=== PATIENT | female | born 1965 | race Caucasian/White ===

== ENCOUNTER 2016-12-05 22:06 | Emergency (ER) | payer OTHER ==
[~2016-12-05] VITALS: Wt 64.5 kg
[2016-12-05] MEDS ORDERED: SOD CHLORIDE 0.9% 1,000 ML IV STA (23:13)
[2016-12-05] MEDS ORDERED: ONDANSETRON 4 MG INJ IV STA (23:13)
[2016-12-05 23:36] LABS: ADD SCAN DIFF NO
[2016-12-05 23:39] LABS: BASOPHILS % 0.6 % (0.0-2.0); EOSINOPHILS # 0.2 10^3/ul (0.0-0.5); EOSINOPHILS % 3.5 % (0.0-7.0); HEMATOCRIT 43.1 % (37.0-47.0); LYMPHOCYTES # 1.9 10^3/ul (0.8-2.9); LYMPHOCYTES % 35.7 % (15.0-51.0); MEAN CORPUSCULAR HEMOGLOBIN 28.2 pg (29.0-33.0); MEAN CORPUSCULAR HGB CONC 34.8 g/dl (32.0-37.0); MEAN PLATELET VOLUME 9.7 fl (7.4-10.4); MONOCYTE # 0.4 10^3/ul (0.3-0.9); MONOCYTES % 7.5 % (0.0-11.0); NEUTROPHIL # 2.7 10^3/ul (1.6-7.5); NEUTROPHILS % 52.5 % (39.0-77.0); PLATELET COUNT 243 10^3/UL (140-415); RED BLOOD COUNT 5.32 10^6/ul (4.20-5.40); RED CELL DISTRIBUTION WIDTH 13.2 % (11.5-14.5); WHITE BLOOD COUNT 5.2 10^3/ul (4.8-10.8)
[2016-12-05] MEDS ORDERED: GLIP-95 PO (23:54)
--- NOTE | 2016-12-06 00:01 | RADRPT ---
PROCEDURE: CT brain without contrast CLINICAL INDICATION: Headaches. Concern for intracranial hemorrhage TECHNIQUE: A CT of the brain was performed utilizing axial sections from the skull base through th e vertex without contrast. Sagittal and coronal images were also reformatted. The exam CTDIvol = 44. 90 mGy and DLP = 720.23 mGy-cm. COMPARISON: None available FINDINGS: No acute intracranial hemorrhage is identified. There is no mass effect or midline shift. No extra -axial fluid collection is seen. The ventricles and sulci are within normal limits for size and con figuration. The density of the brain is within normal limits. Evans-white differentiation is preser devante. The osseous structures are unremarkable. The mastoid air cells and visualized paranasal sinuses are clear. RPTAT:HJJR IMPRESSION: Unremarkable noncontrast CT of the brain. No evidence of intracranial hemorrhage. Physician Rosamaria Date Time Electronically viewed and signed by Physician Rosamaria on 12/06/2016 00:01 /
[2016-12-06 00:03] LABS: ADD UMIC YES; URINE BILIRUBIN (Dip) NEGATIVE (NEGATIVE); URINE BLOOD (Dip) NEGATIVE (NEGATIVE); URINE COLOR LT. YELLOW (YELLOW); URINE GLUCOSE (Dip) >=1000 % (NEGATIVE); URINE KETONES (Dip) NEGATIVE (NEGATIVE); URINE LEUKOCYTE ESTERASE (Dip) NEGATIVE (NEGATIVE); URINE NITRITE (Dip) NEGATIVE (NEGATIVE); URINE TOTAL PROTEIN (Dip) 2+ (NEGATIVE); URINE UROBILINOGEN (Dip) 1.0 E.U./dL (0.1-1.0)
[2016-12-06 00:18] LABS: BACTERIA,URINE OCCASIONAL; SQUAMOUS EPITHELIAL CELL,UR FEW; URINE RBCS NONE SEEN /HPF (0)
[2016-12-06 00:26] LABS: TROPONIN-I < 0.012 ng/ml (0.00-0.12)
[2016-12-06 00:27] LABS: ALANINE AMINOTRANSFERASE 128 IU/L (13-69); ALBUMIN 3.9 g/dl (3.3-4.9); ALBUMIN/GLOBULIN RATIO 0.95; ALKALINE PHOSPHATASE 95 IU/L (42-121); ANION GAP 9 (8-16); ASPARTATE AMINO TRANSFERASE 75 IU/L (15-46); BILIRUBIN,INDIRECT 0.4 mg/dl (0-1.1); BILIRUBIN,TOTAL 0.4 mg/dl (0.2-1.3); BLOOD UREA NITROGEN 11 mg/dl (7-20); CALCIUM 9.2 mg/dl (8.4-10.2); CARBON DIOXIDE 30 mmol/L (21-31); CHLORIDE 100 mmol/L (97-110); CREATININE 0.53 mg/dl (0.44-1.00); GLUCOSE 303 mg/dl (70-220); POTASSIUM 3.4 mmol/L (3.5-5.1); SODIUM 136 mmol/L (135-144)
[2016-12-06] MEDS ORDERED: INSULIN LISPRO 100 UNIT/ML VIAL SC STA (00:31)
[2016-12-06] MEDS ORDERED: ONDA4TAB8 PO (00:54)
[2016-12-06] MEDS ORDERED: IBUP-1542 PO (00:54)
--- NOTE | 2016-12-06 01:02 | ERD ---
ER Documentation Chief Complaint Date/Time DATE: 12/06/16 TIME: 00:57 Chief Complaint NAUSEA/VOMITING X3/DIZZY/BODY PAIN SINCE 5AM HASN'T TAKEN BP MEDS HPI 51-year-old woman brought in by daughter for complaints of generalized dizziness , weakness, nausea and vomiting 3 episodes today. She has had body aches although she does denied chest pain and abdominal pain specifically. Patient denies dysuria, no fevers or chills, no complaints of neck pain or stiffness, although she has had headache. Patient has had no loss of consciousness, no weakness in her arms or legs, no slurred speech. ROS All systems reviewed and are negative except as per history of present illness. Medications Home Meds Active Scripts Ondansetron Hcl* (Zofran*) 4 Mg Tablet, 4 MG PO Q8H Y for NAUSEA AND/OR VOMITING , #15 TAB Prov:JADE HOLDEN MD 12/06/16 Ibuprofen* (Ibuprofen*) 600 Mg Tablet, 600 MG PO Q8 for PAIN AND/OR INFLAMMATION , #30 TAB Prov:JADE HOLDEN MD 12/06/16 Reported Medications Glipizide* (Glipizide*) 10 Mg Tablet, 10 MG PO AC BREAKFAST, TAB 12/05/16 Allergies Allergies: Coded Allergies: No Known Allergy (Unverified , 12/05/16) PMhx/Soc Diabetes mellitus, hypertension Medical and Surgical Hx: pt denies Surgical Hx Hx Miscellaneous Medical Probl: Yes (DM) Hx Alcohol Use: No Hx Substance Use: No Hx Tobacco Use: No Smoking Status: Never smoker FmHx Family History: No diabetes Physical Exam Vitals Vital Signs Date Time Temp Pulse Resp B/P Pulse Ox O2 Delivery O2 Flow Rate FiO2 12/06/16 01:04 97.7 72 20 146/82 100 Room Air 12/06/16 00:50 97.8 78 20 142/78 100 Room Air 12/05/16 22:50 97.8 61 20 185/82 100 Room Air 12/05/16 22:10 97.8 73 20 188/86 97 Physical Exam GENERAL: Well-developed, well-nourished, well-hydrated, in no apparent distress , looks nontoxic in appearance HEENT: Moist mucous membranes, pink conjunctiva, no cervical spine tenderness or step-off deformities, no goiter, no jaundice or icterus, extraocular movements intact without pain. No submandibular induration, and no pharyngeal erythema NEURO: Alert and oriented 3, cranial nerves II through XII intact bilaterally, pupils equal round reactive to light, no focal deficits or facial asymmetry, sensation intact distally Strength 5/5 in upper and lower extremities bilaterally CARDIAC: Bradycardic and regular no murmurs rubs or gallops LUNGS: Clear bilaterally no wheezing crackles or stridor ABDOMEN: Soft nontender, no guarding, no rigidity, no rebound, no psoas sign no obturator sign. Normoactive bowel sounds SKIN: Warm and dry to touch, no abrasions, contusions, or hematomas, no lacerations, no ecchymosis, no target lesions, and without ulcers EXTREMITIES: No clubbing cyanosis or edema, calves are bilaterally symmetrical, no Homans sign, no popliteal cord sign. Distal pulses equal and bilateral PSYCH: Normal affect without agitation or irritability Result Diagram: 12/05/16 2315 12/05/16 2315 Results 24 hrs Laboratory Tests Test 12/05/16 23:15 12/06/16 00:56 White Blood Count 5.210^3/ul Red Blood Count 5.3210^6/ul Hemoglobin 15.0g/dl Hematocrit 43.1% Mean Corpuscular Volume 81.0fl Mean Corpuscular Hemoglobin 28.2pg Mean Corpuscular Hemoglobin Concent 34.8g/dl Red Cell Distribution Width 13.2% Platelet Count 60571^3/UL Mean Platelet Volume 9.7fl Neutrophils % 52.5% Lymphocytes % 35.7% Monocytes % 7.5% Eosinophils % 3.5% Basophils % 0.6% Nucleated Red Blood Cells % 0.0/100WBC Neutrophils # 2.710^3/ul Lymphocytes # 1.910^3/ul Monocytes # 0.410^3/ul Eosinophils # 0.210^3/ul Basophils # 0.010^3/ul Nucleated Red Blood Cells # 0.010^3/ul Urine Color LT. YELLOW Urine Clarity CLEAR Urine pH 8.5 Urine Specific [place] 1.015 Urine Ketones NEGATIVE Urine Nitrite NEGATIVE Urine Bilirubin NEGATIVE Urine Urobilinogen 1.0 E.U./dL Urine Leukocyte Esterase NEGATIVE Urine Microscopic RBC NONE SEEN/HPF Urine Microscopic WBC 0-2/HPF Urine Squamous Epithelial Cells FEW Urine Amorphous Phosphates FEW Urine Bacteria OCCASIONAL Urine Hemoglobin NEGATIVE Urine Glucose >=1000% Urine Total Protein 2+ Sodium Level 136mmol/L Potassium Level 3.4mmol/L Chloride Level 100mmol/L Carbon Dioxide Level 30mmol/L Anion Gap 9 Blood Urea Nitrogen 11mg/dl Creatinine 0.53mg/dl Glucose Level 303mg/dl Calcium Level 9.2mg/dl Total Bilirubin 0.4mg/dl Direct Bilirubin 0.00mg/dl Indirect Bilirubin 0.4mg/dl Aspartate Amino Transf (AST/SGOT) 75IU/L Alanine Aminotransferase (ALT/SGPT) 128IU/L Alkaline Phosphatase 95IU/L Troponin I < 0.012ng/ml Total Protein 8.0g/dl Albumin 3.9g/dl Globulin 4.10g/dl Albumin/Globulin Ratio 0.95 Lipase 133U/L Bedside Glucose 309mg/dL Current Medications Medications (Trade) Dose Ordered Sig/Josie Route PRN Reason Start Time Stop Time Status Last Admin Dose Admin Sodium Chloride (NS) 1,000 ml @ 1,000 mls/hr Q1H STAT IV 12/05/16 23:13 12/06/16 00:12 DC 12/05/16 23:16 Ondansetron HCl (Zofran Inj) 4 mg ONCE STAT IV 12/05/16 23:13 12/05/16 23:14 DC 12/05/16 23:16 Insulin Human Lispro (Humalog) 6 unit ONCE STAT SC 12/06/16 00:31 12/06/16 00:33 DC 12/06/16 01:10 Procedures/MDM IV line was established patient was placed on gambling monitor rhythm strip revealed a sinus bradycardia at about 50 bpm. Patient was afebrile. EKG performed, read by me revealed a sinus bradycardia 52 bpm, normal axis, narrow QRS complex, no concerning ST elevations or depressions noted. CT scan of the brain was performed that was negative for acute bleed, mass, or shift. Please refer to radiologist dictation for full report. CBC was unremarkable, electrolytes revealed hyperglycemia as well as mild hypokalemia 3.4. I administered 6 units of insulin subcutaneous injection 1 for hyperglycemia. Patient also received 1 L normal saline intravenously and Zofran 4 mg IV with good response. Patient's hypertension improved, headache resolved, she had no episodes of vomiting while here, and blood sugar improved. Liver function tests were normal, troponin was negative, urine analysis was negative for infection. Differential diagnoses considered, included but not limited to acute coronary syndrome, pulmonary embolism, aortic dissection, abdominal aortic aneurysm, sepsis, stroke, meningitis, encephalitis, pneumonia, appendicitis, cholecystitis , bowel obstruction, pyelonephritis, nephrolithiasis, cystitis, as well as metabolic, hematologic, and electrolyte abnormalities. As well as abscess, cellulitis, fractures, and dislocations. Patient feels much better at this time, and vital signs are normal, symptoms have improved. I did give strict instructions to return to the ED if symptoms continue or worsen, patient will otherwise follow-up with primary care physician. Patient understood instructions and agreed to plan. Disclaimer: Inadvertent spelling or grammatical errors are likely due to EHR/ dictation software use and do not reflect on the overall quality of patient care. Departure Diagnosis: Primary Impression: Hypertension Hypertension type: essential hypertension Qualified Code: I10 - Essential hypertension Additional Impressions: Vomiting Vomiting type: unspecified Vomiting Intractability: non-intractable Nausea presence: with nausea Qualified Code: R11.2 - Non-intractable vomiting with nausea, unspecified vomiting type Headache Headache type: tension-type Headache chronicity pattern: acute headache Intractability: not intractable Qualified Code: G44.209 - Acute non intractable tension-type headache Hyperglycemia Condition: Good Patient Instructions: Hyperglycemia (High Blood Sugar), Headache, Tension, Vomiting (6Y-Adult) JADE HOLDEN MD December 06, 2016 01:02
[2016-12-06 01:04] VITALS: BP 146/82; PULSE 72; RESP 20; TEMP 97.7
== END 2016-12-06 01:16 | disposition home or self-care (01) ==
LOC: E/R 22:06
DX: I10 Essential (primary) hypertension (principal); G44.209 Tension-type headache, unspecified, not intractable; E11.9 Type 2 diabetes mellitus without complications; R42 Dizziness and giddiness; Z79.84 Long term (current) use of oral hypoglycemic drugs
CPT/HCPCS: 36415; 70450; 80053; 81001; 82962; 83690; 84484; 85025; 93005; 96372; 96374; J1815; J2405; J7030; Z7502

== ENCOUNTER 2017-09-12 16:51 | Emergency (ER) | END 2017-09-12 20:17 | disposition home or self-care (01) ==

== ENCOUNTER 2018-05-29 13:22 | Emergency (ER) | END 2018-05-29 18:58 | disposition home or self-care (01) ==